=== PATIENT | male | born 1965 | race African-American/Black ===

== ENCOUNTER → 2018-06-30 | Outpatient (CLI) | payer BC ==
[~2018-06-30] MED LIST: LISHYD1012 PO
== END ==
LOC: LAB EV 17:34 → LAB SHORT 17:34
DX: L02.511 Cutaneous abscess of right hand (principal)
CPT/HCPCS: 87070; 87075; 87077; 87185; 87205

== ENCOUNTER 2025-03-24 11:12 | Day surgery (SDC) | payer BC ==
[~2025-03-24] VITALS: Ht 185.4 cm; Wt 102.8 kg
[2025-03-24 13:57] VITALS: BP 106/93
== END 2025-03-24 13:50 | disposition home or self-care (01) ==
LOC: ORSCSDS 11:12
PROVIDERS: Surgery
PROC: 0DBL8ZX Excision of Transverse Colon, Via Natural or Artificial Opening Endoscopic, Diagnostic (ICD-10-PCS; principal; 2025-03-24 12:30)
PROC: 0DB48ZX Excision of Esophagogastric Junction, Via Natural or Artificial Opening Endoscopic, Diagnostic (ICD-10-PCS; principal; 2025-03-24 12:30)
PROC: 0DB68ZX Excision of Stomach, Via Natural or Artificial Opening Endoscopic, Diagnostic (ICD-10-PCS; principal; 2025-03-24 12:30)
PROC: 0DB98ZX Excision of Duodenum, Via Natural or Artificial Opening Endoscopic, Diagnostic (ICD-10-PCS; principal; 2025-03-24 12:30)
DX: K21.9 Gastro-esophageal reflux disease without esophagitis (principal); K44.9 Diaphragmatic hernia without obstruction or gangrene; K29.70 Gastritis, unspecified, without bleeding; Z12.11 Encounter for screening for malignant neoplasm of colon; K63.5 Polyp of colon; F41.9 Anxiety disorder, unspecified; M10.9 Gout, unspecified; E78.5 Hyperlipidemia, unspecified; I10 Essential (primary) hypertension; Z79.899 Other long term (current) drug therapy; Z87.891 Personal history of nicotine dependence
CPT/HCPCS: 88305; 88342; J2704; J7120